=== PATIENT | female | born 1960 | race Caucasian/White ===

== ENCOUNTER 2024-10-04 16:40 | Emergency (ER) | payer BC, OTHER | END 2024-10-04 19:06 | disposition hospice, home (50) | LOC: JP.ED 16:40 | DX: L23.7 Allergic contact dermatitis due to plants, except food (principal); L08.9 Local infection of the skin and subcutaneous tissue, unspecified; J45.909 Unspecified asthma, uncomplicated; Z88.0 Allergy status to penicillin; Z91.030 Bee allergy status; Z79.899 Other long term (current) drug therapy; Z90.710 Acquired absence of both cervix and uterus | CPT/HCPCS: 99283 ==

== ENCOUNTER 2024-11-29 14:37 | Emergency (ER) | payer OTHER ==
[2024-11-29 15:34] LABS: BASOPHILS PERCENT AUTO 0.3 % (0.1-1.3); EOSINOPHILS PERCENT AUTO 0.2 % (0.0-5.4); IMMATURE GRAN PERCENT AUTO 0.3 % (0.0-0.7); LYMPHOCYTES ABSOLUTE AUTO 0.79 K/uL (0.8-3.3); LYMPHOCYTES PERCENT AUTO 13.6 % (11.4-47.7); MONOCYTES ABSOLUTE AUTO 0.51 K/uL (0.20-0.90); MONOCYTES PERCENT AUTO 8.8 % (3.3-12.6); NEUTROPHILS ABSOLUTE AUTO 4.45 K/uL (1.0-7.6); NEUTROPHILS PERCENT AUTO 76.8 % (40.0-78.1); PLATELET COUNT,PLT 207 K/uL (130-375); RED BLOOD CELL COUNT 4.10 M/uL (3.77-5.24); WHITE BLOOD CELL COUNT,WBC 5.8 K/uL (3.2-11.0)
[2024-11-29 15:38] LABS: BASOPHILS ABSOLUTE AUTO 0.02 K/uL (0.00-0.10); EOSINOPHILS ABSOLUTE AUTO 0.01 K/uL (0.00-0.40); IMMATURE GRAN ABSOLUTE AUTO 0.02 K/uL (0.00-0.23)
[2024-11-29 15:59] LABS: A/G RATIO 1.1 (1.2-2.2); ALANINE AMINOTRANSFERASE,ALT 29 U/L (12-78); ASPARTATE AMNIOTRANSFERASE,AST 19 U/L (15-37); BILIRUBIN TOTAL 0.4 mg/dL (0.2-1.0); BLOOD UREA NITROGEN,BUN 13 mg/dL (7-18); CARBON DIOXIDE,CO2 27 mmol/L (21-32); CHLORIDE,CL 101 mmol/L (100-108); CREATININE 0.6 mg/dL (0.6-1.0); EST CRCL DRUG DOSING (CG) 78.36 mL/min; ESTIMATED GFR 100 mL/min (>60); GLUCOSE RANDOM 100 mg/dL (74-106); POTASSIUM,K 3.4 mmol/L (3.6-5.2); PROTEIN TOTAL,TP 6.9 g/dL (6.4-8.2); SODIUM,NA 138 mmol/L (140-148); TROPONIN I HIGH SENSITIVITY 7.7 pg/mL (<=60.3)
[2024-11-29 16:00] LABS: CREATINE KINASE,CK 68.0 U/L (26-192)
[2024-11-29 16:15] LABS: APPEARANCE,URINE CLEAR (CLEAR); GLUCOSE,URINE NEGATIVE (NEGATIVE); OCCULT BLOOD,URINE TRACE-LYSED (NEGATIVE)
[2024-11-29 16:31] LABS: SQUAMOUS EPITHELIAL CELLS,UR RARE /HPF; UROTHELIAL CELLS,URINE NOT SEEN /HPF
[2024-12-03 16:40] LABS: ANAPLASMA PHAGOCYTOPHILUM PCR Not Detected; BABESIA MICROTI BY PCR Not Detected; EHRLICHIA CHAFFEENSIS BY PCR Not Detected; EHRLICHIA EWINGII/CANIS BY PCR Not Detected; EHRLICHIA MURIS-LIKE BY PCR Not Detected
== END 2024-11-29 18:09 | disposition home or self-care (01) ==
LOC: JP.ED 14:37
DX: A84.9 Tick-borne viral encephalitis, unspecified (principal); Z88.0 Allergy status to penicillin; Z91.030 Bee allergy status; Z79.899 Other long term (current) drug therapy
CPT/HCPCS: 36415; 71250; 74176; 80053; 80307; 81001; 82550; 83605; 83690; 83735; 84484; 85025; 85379; 86140; 86618; 87426-QW; 87468; 87469; 87484; 87798; 93005; 93010; 99284; 99285

== ENCOUNTER 2024-12-08 02:29 | Emergency (ER) | payer OTHER ==
[2024-12-08 02:59] LABS: PLATELET COUNT,PLT 400 K/uL (130-375); RED BLOOD CELL COUNT 4.58 M/uL (3.77-5.24); WHITE BLOOD CELL COUNT,WBC 5.5 K/uL (3.2-11.0)
[2024-12-08] MEDS: Ketorolac 15 MG/ML SDV IVPUSH ONE (03:12)
[2024-12-08 03:21] LABS: APPEARANCE,URINE SLIGHTLY CLOUDY (CLEAR); GLUCOSE,URINE NEGATIVE (NEGATIVE); OCCULT BLOOD,URINE TRACE-INTACT (NEGATIVE)
[2024-12-08 03:21] LABS: LACTIC ACID 0.6 mmol/L (0.4-2.0)
[2024-12-08 03:23] LABS: BAND ABSOLUTE MAN 0.11 K/uL; BAND PERCENT MAN 2 % (5-11); LYMPHOCYTES ABSOLUTE MAN 2.20 K/uL (0.8-3.3); LYMPHOCYTES PERCENT MAN 40 % (24-44); MONOCYTES ABSOLUTE MAN 0.61 K/uL (0.20-0.90); MONOCYTES PERCENT MAN 11 % (2-6); NEUTROPHILS ABSOLUTE MAN 2.59 K/uL (1.0-7.6); SEG NEUTROPHILS PERCENT MAN 47 % (36-66)
[2024-12-08 03:27] LABS: A/G RATIO 1.0 (1.2-2.2); ALANINE AMINOTRANSFERASE,ALT 76 U/L (12-78); ASPARTATE AMNIOTRANSFERASE,AST 41 U/L (15-37); BILIRUBIN TOTAL 0.6 mg/dL (0.2-1.0); BLOOD UREA NITROGEN,BUN 7 mg/dL (7-18); CARBON DIOXIDE,CO2 25 mmol/L (21-32); CHLORIDE,CL 96 mmol/L (100-108); CREATININE 0.4 mg/dL (0.6-1.0); EST CRCL DRUG DOSING (CG) 117.54 mL/min; ESTIMATED GFR 110 mL/min (>60); GLUCOSE RANDOM 165 mg/dL (74-106); POTASSIUM,K 3.1 mmol/L (3.6-5.2); PROTEIN TOTAL,TP 7.6 g/dL (6.4-8.2); SODIUM,NA 135 mmol/L (140-148)
[2024-12-08] MEDS ORDERED: Sodium Chloride 0.9% 10 ML Syringe FLUSH PRN (03:27)
[2024-12-08 03:28] LABS: SQUAMOUS EPITHELIAL CELLS,UR FEW /HPF; UROTHELIAL CELLS,URINE NOT SEEN /HPF
[2024-12-08] MEDS ORDERED: Naloxone 0.4 MG/ML SDV IVPUSH PRN (03:32)
== END 2024-12-08 05:15 | disposition home or self-care (01) ==
LOC: JP.ED 02:29
DX: N39.0 Urinary tract infection, site not specified (principal); M62.830 Muscle spasm of back; Z88.0 Allergy status to penicillin; Z88.8 Allergy status to other drugs, medicaments and biological substances; Z79.899 Other long term (current) drug therapy; Z90.710 Acquired absence of both cervix and uterus
CPT/HCPCS: 36415; 74176; 80053; 81001; 83605; 85025; 87086; 96361; 96374; 96375; 99284; J1885; J7030; J1171